=== PATIENT | male | born 1975 | race Caucasian/White ===

== ENCOUNTER 2021-03-03 02:54 | Emergency (ER) | payer SELFPAY ==
[~2021-03-03] VITALS: Ht 167.6 cm; Wt 77.0 kg
[2021-03-03] MEDS ORDERED: ONDANSETRON HCL 4MG/2ML INJ IV STA (03:20)
[2021-03-03] MEDS ORDERED: MORPHINE SULFATE 4 MG/ML CPJ (NOT FOR IM USE) IV STA (03:20)
[2021-03-03] MEDS ORDERED: TETRACAINE 0.5% OPHTH DROPS 4ML LEFTEYE ONE (03:30)
[2021-03-03] MEDS ORDERED: TETANUS, DIPHTHERIA, PERTUSSIS VAC/PF 0.5ML (>7YR OLD) IM ONE (03:30)
[2021-03-03] MEDS ORDERED: ACETAMINOPHEN 325MG TABLET PO ONE (07:15)
[2021-03-03 07:51] VITALS: BP 124/79
[2021-03-03] MEDS ORDERED: TOPUD PO (08:57)
== END 2021-03-03 11:17 | disposition home or self-care (01) ==
LOC: ER 02:54
DX: T65.891A Toxic effect of other specified substances, accidental (unintentional), initial encounter (principal); T26.92XA Corrosion of left eye and adnexa, part unspecified, initial encounter; Y93.89 Activity, other specified; Y92.89 Other specified places as the place of occurrence of the external cause; Y99.0 Civilian activity done for income or pay; Z23 Encounter for immunization; R03.0 Elevated blood-pressure reading, without diagnosis of hypertension; E78.5 Hyperlipidemia, unspecified
CPT/HCPCS: 90471; 90715; 96374; 96375; 99284; J2270; J2405